=== PATIENT | male | born 1985 | race Caucasian/White ===

== ENCOUNTER 2017-12-01 15:23 | Inpatient (IN) | payer MEDICAID, SELFPAY ==
[2017-12-01 15:27] VITALS: BP 150/87; PULSE 126; RESP 18; TEMP 38.2; O2SAT 93; BMI 68.9
--- NOTE | 2017-12-01 15:58 | VDLE_ITS ---
Reason For Study: cellullitis, RLE pain RIGHT GSV is normal. FV is compressible, spontaneous, phasic, competent and demonstrates normal augmentation. POP V is compressible, spontaneous, phasic, competent and demonstrates normal augmentation. T/P Trunk is compressible. PTV is compressible. Unable to visualize peroneal veins. CFV is compressible, spontaneous, phasic, competent and demonstrates normal augmentation. Procedure Exam performed portable in ED. The study was technically limited. The study was technically difficult. Due to obesity. A preliminary report was called and/or faxed to ED. Interpretation Summary Deep veins of the right lower extremity are patent and compressible segmentally. There is no evidence of right lower extremity deep vein thrombosis. Valvular competence appears intact within the proximal deep venous system on the right . The right greater saphenous vein appears patent and compressible segmentally. The right peroneal veins were not visualized. Ordering Physician: Annamarie Garcia Referring Physician: OTD Performed By: Beena Ba, RUFINA, RVT
[2017-12-01 15:59] VITALS: BP 140/80; PULSE 102; RESP 14; O2SAT 99
[2017-12-01] MEDS: Clindamycin 900 MG/50 ML BAG 75 MG IV (16:20)
[2017-12-01] MEDS: Acetaminophen 500 MG Tablet 1000 MG PO (16:20)
[2017-12-01 16:39] LABS: Absolute Lymphocyte Count 1.32 X10^3/ul (0.83-4.51); Absolute Neutrophil Count 9.8 X10^3/uL (2.0-7.7); Basophil# 0.02 X10^3/uL; Basophil% 0.2 % (0-1); Eosinophil# 0.02 X10^3/uL; Eosinophils% 0.2 % (0-5); Lymphocyte # 1.32 X10^3/ul (4.0); Lymphocyte % 10.5 % (19-41); Mean Corp Hgb Conc 32.5 g/gl (32-36); Mean Corpuscular Hgb 28.3 pg (27.0-32.0); Mean Corpuscular Volume 87.1 fL (80-94); Mean Platelet Vol. 10.4 fl (6.2-12.0); Monocyte# 1.34 X10^3/uL; Monocyte% 10.7 % (0-10); Neutrophil # 9.81 X10^3/uL (2.7-7.7); Neutrophil % 78.1 % (47-70); Platelet Count 222 K/mm3 (150-450); RBC Distribution Width CV 14.8 % (11.6-14.6); RBC Distribution Width SD 47.3 fl (35.1-43.9); Red Blood Count 4.59 M/mm3 (4.6-6.2); White Blood Count 12.6 K/mm3 (4.4-11.0)
[2017-12-01 16:47] LABS: POSITIVE COUNT NO; POSITIVE DIFFERENTIAL NO; POSITIVE MORPHOLOGY NO
[2017-12-01 16:55] LABS: ALB/GLOB Ratio 0.7 RATIO (0.9-2.4); AST(SGOT) 13 U/L (15-37); Alanine Aminotransfer ALT/SGPT 19 U/L (16-61); Alkaline Phosphatase 59 U/L (45-117); Anion Gap 7 (5-15); BUN 10 mg/dL (7-18); BUN/Creat Ratio 9.9 RATIO (10-20); Calcium,Total 9.1 mg/dL (8.5-10.1); Chloride 99 mmol/L (98-107); Creatinine, Serum 1.01 mg/dL (0.70-1.30); EST Glomerular Filtration Rate 92 mL/min (>60); Est Glom Filt Rate - Afr Amer 111 mL/min (>60); Estimated Creatinine Clearance 99.99 ml/min; Globulin 4.5 g/dL (2.2-4.2); Glucose 118 mg/dL (74-106); Potassium 3.7 mmol/L (3.5-5.1); Protein, Total 7.5 g/dL (6.4-8.2); Sodium Level 133 mmol/L (136-145)
[2017-12-01 16:58] VITALS: BMI 68.9
[2017-12-01 17:04] VITALS: BP 145/88; PULSE 103; RESP 14; O2SAT 99
--- NOTE | 2017-12-01 17:10 | PCM.HP.STD ---
<Linus Lance - Last Filed: 12/01/17 17:40> Problem List (1) Sepsis Status: Acute (2) Cellulitis Status: Acute (3) Nicotine abuse Status: Chronic (4) Morbid obesity Status: Chronic (5) HTN (hypertension) Status: Chronic History of Present Illness Date of Admission: 12/01/17 Chief Complaint: RLE swelling The patient is a 31 year old M with a hx of multiple episodes of cellulitis, morbid obesity, HTN, nicotine abuse who presents to the ER with increased swelling of his RLE. This began about 2 days ago. He had a small raised area about a month ago that he described as a large pimple, and he opened it up with purulent drainage, and cleaned it with hydrogen peroxide. He states it was doing well until two days ago where it developed surrounding erythema, pain, redness, warmth, and became very swollen. It progressively worsened. He developed nausea, dry heaves, fevers and chills. He presents today with a fever and sepsis in the ER. He has not been on outpatient abx. He has had multiple episodes of cellulitis in this area in the past. The ipsilateral knee has also had an abscess that was I&D'd in the past about 1 year ago. He does not know what bacteria if any were isolated, and does not know if he has ever had MRSA. He has not had any further drainage from the open wound. [] Past Medical History Past Medical History (Chronic Problems): Chronic Problems Nicotine abuse (Chronic) Morbid obesity (Chronic) HTN (hypertension) (Chronic) Allergies No Known Allergies Allergy (Verified 12/01/17 15:28) Home Medications: Ambulatory Orders Medication Instructions Recorded Cholecalciferol (Vitamin D3) 5,000 unit PO DAILY 12/01/17 [Vitamin D3] Lisinopril/Hydrochlorothiazide 1 each PO DAILY 12/01/17 [Zestoretic 20-12.5 mg Tablet] Surgical History: - - tonsils Psychiatric History: No pertinent psych hx Lives: With Family Smoking Status: Current every day smoker Tobacco Use: Cigarettes Alcohol: None Drugs: None - *Family History Maternal History Items: No pertinent history Paternal History Items: No pertinent history Sibling History Items: No pertinent history Review of Systems Constitutional: Reports: Chills, Fever. Denies: Weight Change HEENT: Denies: Head Aches, Sinus Congestion, Sinus Drainage Cardiovascular: Denies: Chest Pain, Palpitations Respiratory: Denies: Cough, Shortness of breath at rest, Sputum production Gastrointestinal: Reports: Nausea, Vomiting. Denies: Abdominal Pain, Melena Genitourinary: Denies: Dysuria Musculoskeletal: Denies: Joint Pain, Joint Tenderness Skin: Reports: Rash, Wounds Neurological: Denies: Numbness, Tingling, Focal weakness Psychiatric: Denies: Anxiety, Depression, Homicidal Ideations, Suicidal Ideations Hematologic/ Lymphatic: Denies: Easy Bruising, Easy Bleeding VTE Information - Inpt Only VTE Present on Admission: No VTE Mechan Device Prophylaxis: None Patient Problems: Active and Suspected Problems Sepsis (Acute) Cellulitis (Acute) - Physical Exam General: Alert, Oriented x3, Cooperative HEENT: Atraumatic, PERRLA, EOMI, Normocephalic Neck: Supple, No JVD, Negative Carotid Bruits Lungs: Clear to auscultation, Normal air movement Cardiovascular: Regular rate, No murmurs Abdomen: Bowel Sounds Present, Soft, Non Tender, Obese Extremities: No edema, Capillary Refill Less than 3 Seconds Skin: No breakdown, Rash Present - RLE, partially into Right foot, up to but sparing knee. Warm, tender, indurated, erythematous diffusely. Small open area of nonhealing wound right anterolateral distal leg. Musculoskeletal: No Tenderness to Palpation of Joints or Extremities Neurological: Cranial nerves II-XII grossly intact Psych/Mental Status: Normal Affect, Appropriate, Alert and oriented to time, place, person, mood and affect Vital Signs Temp Pulse Resp BP Pulse Ox 100.8 F H 103 H 14 145/88 H 99 12/01/17 15:27 12/01/17 17:04 12/01/17 17:04 12/01/17 17:04 12/01/17 17:04 Oxygen Delivery Method Room Air Weight: 440 lb Body Mass Index (BMI) 68.9 Laboratory Tests Past 24 Hrs 12/01/17 12/01/17 12/01/17 16:20 16:20 16:20 WBC 12.6 H RBC 4.59 L Hgb 13.0 Hct 40.0 MCV 87.1 MCH 28.3 MCHC 32.5 RDW 14.8 H RDW Differential 47.3 H Plt Count 222 MPV 10.4 Immature Gran % (Auto) 0.300 Neut % (Auto) 78.1 H Lymph % (Auto) 10.5 L Dolores % (Auto) 10.7 H Eos % (Auto) 0.2 Baso % (Auto) 0.2 Absolute Neuts (auto) 9.8 H Absolute Lymphs (auto) 1.32 Total Counted Not Reportable Sodium 133 L Potassium 3.7 Chloride 99 Carbon Dioxide 27.0 Anion Gap 7 BUN 10 Creatinine 1.01 Estim Creat Clear Calc 99.99 Est GFR (MDRD) Af Amer 111 Est GFR (MDRD) Non-Af 92 BUN/Creatinine Ratio 9.9 L Glucose 118 H Lactic Acid Pending Calcium 9.1 Total Bilirubin 0.60 AST 13 L ALT 19 Alkaline Phosphatase 59 Total Protein 7.5 Albumin 3.0 L Globulin 4.5 H Albumin/Globulin Ratio 0.7 L Assessment/Plan All Active Problems Sepsis (Acute) Cellulitis (Acute) 1. Acute sepsis 2/2 RLE recurrent cellulitis and nonhealing RLE wound - did have purulent drainage initially. Received one dose of clinda in the ER. Start Vanc. Get MRSA/MSSA screen, blood cultures pending. Consider CT to r/o underlying abscess if able to fit max is 70 cm at furthest width across. Wound care consult. Prior hx cellulitis same area. Fever, tachy, elevated WBC on admission. Lactate is pending. Venous US RLE negative for clots. 2. HTN - mildly elevated 3. Morbid obesity - mildly elevated glucose - check a1c. 4. Nicotine abuse - does not want patch at this time. Will complicate wound healing. DVT ppx: lovenox This patient was seen by Linus Lance PA-C under the supervision of Doctor Franny. <Toy Blanton - Last Filed: 12/01/17 17:48> Problem List (1) Sepsis Status: Acute (2) Cellulitis Status: Acute History of Present Illness The patient is a 31 year old M 2 day history of right lower extremity erythema. Presents emergency room and diagnosed treated with clindamycin. Patient has had a history of cellulitis in that lower extremity before. Patient states that a month prior had a wound on the lateral aspect of the right anterior ocampo that did heal up. [] Past Medical History Allergies No Known Allergies Allergy (Verified 12/01/17 15:28) Surgical History: - Psychiatric History: No pertinent psych hx Lives: With Family Smoking Status: Current every day smoker Tobacco Use: Cigarettes Alcohol: None Drugs: None - *Family History Maternal History Items: No pertinent history Paternal History Items: No pertinent history Sibling History Items: No pertinent history Review of Systems Constitutional: Reports: Chills, Fever. Denies: Weight Change HEENT: Denies: Head Aches, Sinus Congestion, Sinus Drainage Cardiovascular: Denies: Chest Pain, Palpitations Respiratory: Denies: Cough Gastrointestinal: Reports: Nausea, Vomiting. Denies: Abdominal Pain, Melena Genitourinary: Denies: Dysuria Musculoskeletal: Denies: Joint Pain Skin: Reports: Rash, Wounds Neurological: Denies: Focal weakness, Numbness, Tingling Psychiatric: Denies: Anxiety, Depression, Homicidal Ideations, Suicidal Ideations Hematologic/ Lymphatic: Denies: Easy Bruising, Easy Bleeding, Hx of blood clot Comment: All review of systems are negative except as mentioned in the history of present illness and the other review of systems. VTE Information - Inpt Only VTE Present on Admission: No VTE Mechan Device Prophylaxis: None VTE Pharm Prophylaxis ordered?: Yes - Physical Exam General: Alert, Cooperative, No apparent distress, - - Morbidly obese. HEENT: Atraumatic, PERRLA, EOMI, Normocephalic Lungs: Clear to auscultation, Normal air movement Cardiovascular: Regular rate, Regular Rhythm, Normal S1, Normal S2, No murmurs Abdomen: Bowel Sounds Present, Soft, Non Tender, Non-Distended Extremities: No cyanosis, Edema - Trace Skin: No breakdown, - - Erythema circumferentially around the right distal leg. Just distal his knee and above his ankle. Some slight tenderness palpation. No significant induration, no fluctuance. Musculoskeletal: No Tenderness to Palpation of Joints or Extremities Psych/Mental Status: Normal Affect, Appropriate Vital Signs Temp Pulse Resp BP Pulse Ox 38.2 C H 103 H 14 145/88 H 99 12/01/17 15:27 12/01/17 17:04 12/01/17 17:04 12/01/17 17:04 12/01/17 17:04 Oxygen Delivery Method Room Air Weight: 199.581 kg Body Mass Index (BMI) 68.9 Laboratory Tests Past 24 Hrs 12/01/17 12/01/17 12/01/17 16:20 16:20 16:20 WBC 12.6 H RBC 4.59 L Hgb 13.0 Hct 40.0 MCV 87.1 MCH 28.3 MCHC 32.5 RDW 14.8 H RDW Differential 47.3 H Plt Count 222 MPV 10.4 Immature Gran % (Auto) 0.300 Neut % (Auto) 78.1 H Lymph % (Auto) 10.5 L Dolores % (Auto) 10.7 H Eos % (Auto) 0.2 Baso % (Auto) 0.2 Absolute Neuts (auto) 9.8 H Absolute Lymphs (auto) 1.32 Total Counted Not Reportable Sodium 133 L Potassium 3.7 Chloride 99 Carbon Dioxide 27.0 Anion Gap 7 BUN 10 Creatinine 1.01 Estim Creat Clear Calc 99.99 Est GFR (MDRD) Af Amer 111 Est GFR (MDRD) Non-Af 92 BUN/Creatinine Ratio 9.9 L Glucose 118 H Lactic Acid 1.3 Calcium 9.1 Total Bilirubin 0.60 AST 13 L ALT 19 Alkaline Phosphatase 59 Total Protein 7.5 Albumin 3.0 L Globulin 4.5 H Albumin/Globulin Ratio 0.7 L Assessment/Plan Patient seen and examined independently. Data reviewed. I agree with the above note by the physician child care assistant. 1. Sepsis Present on arrival Secondary to right lower extremity cellulitis Supportive management 2. Right lower extremity cellulitis I suspected this is strep but cannot rule out staph. Check MRSA swab Check CT scan of the leg to see if there is any abscess or deeper infection Vancomycin 3. Morbid obesity: Complicating care 4. DVT prophylaxis with Lovenox Code Visit Inpatient E&M: 52535 Init Hosp L2
[2017-12-01 17:11] LABS: Lactic Acid 1.3 mmol/L (0.4-2.0)
--- NOTE | 2017-12-01 17:15 | HP.PCM_ITS ---
<Linus Lance - Last Filed: 12/01/17 17:40> Problem List (1) Sepsis Status: Acute (2) Cellulitis Status: Acute (3) Nicotine abuse Status: Chronic (4) Morbid obesity Status: Chronic (5) HTN (hypertension) Status: Chronic History of Present Illness Date of Admission: 12/01/17 Chief Complaint: RLE swelling The patient is a 31 year old M with a hx of multiple episodes of cellulitis, morbid obesity, HTN, nicotine abuse who presents to the ER with increased swelling of his RLE. This began about 2 days ago. He had a small raised area about a month ago that he described as a large pimple, and he opened it up with purulent drainage, and cleaned it with hydrogen peroxide. He states it was doing well until two days ago where it developed surrounding erythema, pain, redness, warmth, and became very swollen. It progressively worsened. He developed nausea, dry heaves, fevers and chills. He presents today with a fever and sepsis in the ER. He has not been on outpatient abx. He has had multiple episodes of cellulitis in this area in the past. The ipsilateral knee has also had an abscess that was I&D'd in the past about 1 year ago. He does not know what bacteria if any were isolated, and does not know if he has ever had MRSA. He has not had any further drainage from the open wound. [] Past Medical History Past Medical History (Chronic Problems): Chronic Problems Nicotine abuse (Chronic) Morbid obesity (Chronic) HTN (hypertension) (Chronic) Allergies No Known Allergies Allergy (Verified 12/01/17 15:28) Home Medications: Ambulatory Orders Medication Instructions Recorded Cholecalciferol (Vitamin D3) 5,000 unit PO DAILY 12/01/17 [Vitamin D3] Lisinopril/Hydrochlorothiazide 1 each PO DAILY 12/01/17 [Zestoretic 20-12.5 mg Tablet] Surgical History: - - tonsils Psychiatric History: No pertinent psych hx Lives: With Family Smoking Status: Current every day smoker Tobacco Use: Cigarettes Alcohol: None Drugs: None - *Family History Maternal History Items: No pertinent history Paternal History Items: No pertinent history Sibling History Items: No pertinent history Review of Systems Constitutional: Reports: Chills, Fever. Denies: Weight Change HEENT: Denies: Head Aches, Sinus Congestion, Sinus Drainage Cardiovascular: Denies: Chest Pain, Palpitations Respiratory: Denies: Cough, Shortness of breath at rest, Sputum production Gastrointestinal: Reports: Nausea, Vomiting. Denies: Abdominal Pain, Melena Genitourinary: Denies: Dysuria Musculoskeletal: Denies: Joint Pain, Joint Tenderness Skin: Reports: Rash, Wounds Neurological: Denies: Numbness, Tingling, Focal weakness Psychiatric: Denies: Anxiety, Depression, Homicidal Ideations, Suicidal Ideations Hematologic/ Lymphatic: Denies: Easy Bruising, Easy Bleeding VTE Information - Inpt Only VTE Present on Admission: No VTE Mechan Device Prophylaxis: None Patient Problems: Active and Suspected Problems Sepsis (Acute) Cellulitis (Acute) - Physical Exam General: Alert, Oriented x3, Cooperative HEENT: Atraumatic, PERRLA, EOMI, Normocephalic Neck: Supple, No JVD, Negative Carotid Bruits Lungs: Clear to auscultation, Normal air movement Cardiovascular: Regular rate, No murmurs Abdomen: Bowel Sounds Present, Soft, Non Tender, Obese Extremities: No edema, Capillary Refill Less than 3 Seconds Skin: No breakdown, Rash Present - RLE, partially into Right foot, up to but sparing knee. Warm, tender, indurated, erythematous diffusely. Small open area of nonhealing wound right anterolateral distal leg. Musculoskeletal: No Tenderness to Palpation of Joints or Extremities Neurological: Cranial nerves II-XII grossly intact Psych/Mental Status: Normal Affect, Appropriate, Alert and oriented to time, place, person, mood and affect Vital Signs Temp Pulse Resp BP Pulse Ox 100.8 F H 103 H 14 145/88 H 99 12/01/17 15:27 12/01/17 17:04 12/01/17 17:04 12/01/17 17:04 12/01/17 17:04 Oxygen Delivery Method Room Air Weight: 440 lb Body Mass Index (BMI) 68.9 Laboratory Tests Past 24 Hrs 12/01/17 12/01/17 12/01/17 16:20 16:20 16:20 WBC 12.6 H RBC 4.59 L Hgb 13.0 Hct 40.0 MCV 87.1 MCH 28.3 MCHC 32.5 RDW 14.8 H RDW Differential 47.3 H Plt Count 222 MPV 10.4 Immature Gran % (Auto) 0.300 Neut % (Auto) 78.1 H Lymph % (Auto) 10.5 L Wetzel % (Auto) 10.7 H Eos % (Auto) 0.2 Baso % (Auto) 0.2 Absolute Neuts (auto) 9.8 H Absolute Lymphs (auto) 1.32 Total Counted Not Reportable Sodium 133 L Potassium 3.7 Chloride 99 Carbon Dioxide 27.0 Anion Gap 7 BUN 10 Creatinine 1.01 Estim Creat Clear Calc 99.99 Est GFR (MDRD) Af Amer 111 Est GFR (MDRD) Non-Af 92 BUN/Creatinine Ratio 9.9 L Glucose 118 H Lactic Acid Pending Calcium 9.1 Total Bilirubin 0.60 AST 13 L ALT 19 Alkaline Phosphatase 59 Total Protein 7.5 Albumin 3.0 L Globulin 4.5 H Albumin/Globulin Ratio 0.7 L Assessment/Plan All Active Problems Sepsis (Acute) Cellulitis (Acute) 1. Acute sepsis 2/2 RLE recurrent cellulitis and nonhealing RLE wound - did have purulent drainage initially. Received one dose of clinda in the ER. Start Vanc. Get MRSA/MSSA screen, blood cultures pending. Consider CT to r/o underlying abscess if able to fit max is 70 cm at furthest width across. Wound care consult. Prior hx cellulitis same area. Fever, tachy, elevated WBC on admission. Lactate is pending. Venous US RLE negative for clots. 2. HTN - mildly elevated 3. Morbid obesity - mildly elevated glucose - check a1c. 4. Nicotine abuse - does not want patch at this time. Will complicate wound healing. DVT ppx: lovenox This patient was seen by Linus Lance PA-C under the supervision of Doctor Franny. <Toy Blanton - Last Filed: 12/01/17 17:48> Problem List (1) Sepsis Status: Acute (2) Cellulitis Status: Acute History of Present Illness The patient is a 31 year old M 2 day history of right lower extremity erythema. Presents emergency room and diagnosed treated with clindamycin. Patient has had a history of cellulitis in that lower extremity before. Patient states that a month prior had a wound on the lateral aspect of the right anterior ocampo that did heal up. [] Past Medical History Allergies No Known Allergies Allergy (Verified 12/01/17 15:28) Surgical History: - Psychiatric History: No pertinent psych hx Lives: With Family Smoking Status: Current every day smoker Tobacco Use: Cigarettes Alcohol: None Drugs: None - *Family History Maternal History Items: No pertinent history Paternal History Items: No pertinent history Sibling History Items: No pertinent history Review of Systems Constitutional: Reports: Chills, Fever. Denies: Weight Change HEENT: Denies: Head Aches, Sinus Congestion, Sinus Drainage Cardiovascular: Denies: Chest Pain, Palpitations Respiratory: Denies: Cough Gastrointestinal: Reports: Nausea, Vomiting. Denies: Abdominal Pain, Melena Genitourinary: Denies: Dysuria Musculoskeletal: Denies: Joint Pain Skin: Reports: Rash, Wounds Neurological: Denies: Focal weakness, Numbness, Tingling Psychiatric: Denies: Anxiety, Depression, Homicidal Ideations, Suicidal Ideations Hematologic/ Lymphatic: Denies: Easy Bruising, Easy Bleeding, Hx of blood clot Comment: All review of systems are negative except as mentioned in the history of present illness and the other review of systems. VTE Information - Inpt Only VTE Present on Admission: No VTE Mechan Device Prophylaxis: None VTE Pharm Prophylaxis ordered?: Yes - Physical Exam General: Alert, Cooperative, No apparent distress, - - Morbidly obese. HEENT: Atraumatic, PERRLA, EOMI, Normocephalic Lungs: Clear to auscultation, Normal air movement Cardiovascular: Regular rate, Regular Rhythm, Normal S1, Normal S2, No murmurs Abdomen: Bowel Sounds Present, Soft, Non Tender, Non-Distended Extremities: No cyanosis, Edema - Trace Skin: No breakdown, - - Erythema circumferentially around the right distal leg. Just distal his knee and above his ankle. Some slight tenderness palpation. No significant induration, no fluctuance. Musculoskeletal: No Tenderness to Palpation of Joints or Extremities Psych/Mental Status: Normal Affect, Appropriate Vital Signs Temp Pulse Resp BP Pulse Ox 38.2 C H 103 H 14 145/88 H 99 12/01/17 15:27 12/01/17 17:04 12/01/17 17:04 12/01/17 17:04 12/01/17 17:04 Oxygen Delivery Method Room Air Weight: 199.581 kg Body Mass Index (BMI) 68.9 Laboratory Tests Past 24 Hrs 12/01/17 12/01/17 12/01/17 16:20 16:20 16:20 WBC 12.6 H RBC 4.59 L Hgb 13.0 Hct 40.0 MCV 87.1 MCH 28.3 MCHC 32.5 RDW 14.8 H RDW Differential 47.3 H Plt Count 222 MPV 10.4 Immature Gran % (Auto) 0.300 Neut % (Auto) 78.1 H Lymph % (Auto) 10.5 L Wetzel % (Auto) 10.7 H Eos % (Auto) 0.2 Baso % (Auto) 0.2 Absolute Neuts (auto) 9.8 H Absolute Lymphs (auto) 1.32 Total Counted Not Reportable Sodium 133 L Potassium 3.7 Chloride 99 Carbon Dioxide 27.0 Anion Gap 7 BUN 10 Creatinine 1.01 Estim Creat Clear Calc 99.99 Est GFR (MDRD) Af Amer 111 Est GFR (MDRD) Non-Af 92 BUN/Creatinine Ratio 9.9 L Glucose 118 H Lactic Acid 1.3 Calcium 9.1 Total Bilirubin 0.60 AST 13 L ALT 19 Alkaline Phosphatase 59 Total Protein 7.5 Albumin 3.0 L Globulin 4.5 H Albumin/Globulin Ratio 0.7 L Assessment/Plan Patient seen and examined independently. Data reviewed. I agree with the above note by the physician hardware sales assistant. 1. Sepsis * Present on arrival * Secondary to right lower extremity cellulitis * Supportive management 2. Right lower extremity cellulitis * I suspected this is strep but cannot rule out staph. * Check MRSA swab * Check CT scan of the leg to see if there is any abscess or deeper infection * Vancomycin 3. Morbid obesity: Complicating care 4. DVT prophylaxis with Lovenox Code Visit Inpatient E&M: 65032 Init Hosp L2
[2017-12-01 17:44] VITALS: BP 110/80; PULSE 110; RESP 14; O2SAT 98
--- NOTE | 2017-12-01 17:46 | NURSING ---
MED SURG RLE CELLULITIS VERÓNICA
--- NOTE | 2017-12-01 18:13 | CT_ITS ---
STUDY: CT LOWER LEG RIGHT REASON FOR EXAM: Male, 31 years old. Cellulitis right leg RADIATION DOSAGE (If Supplied By Facility): CTDIvol = ( 17.29 ) mGy, DLP = ( 761.33 ) mGycm. Individualized dose optimization techniques were used for this CT.? TECHNIQUE: Standard protocol CT without contrast right lower leg COMPARISON: None. FINDINGS: Circumferential subcutaneous edema but no organized fluid collection. Cortical margins intact. CT/Extremity Lower without Contra IMPRESSION: Diffuse soft tissue swelling/edema and possible inflammation but no organized fluid collection or abscess. Electronically Signed: Prakash Prado MD at 19:57 EDT , Service support ,
[2017-12-01 18:16] VITALS: BMI 68.9
[2017-12-01 18:19] VITALS: BP 135/78; PULSE 114; RESP 18; TEMP 36.8; O2SAT 95
[2017-12-01 19:02] LABS: Hemoglobin A1c 5.9 % (4.2-6.3)
[2017-12-01 19:39] VITALS: BP 134/78; PULSE 114; RESP 18; TEMP 37.4; O2SAT 94
--- NOTE | 2017-12-01 20:07 | PCM.RX.CS ---
Consult Pharmacy has been consulted to manage selected antiobiotic: Vancomycin Type of Consult: New start Suspected Infection: Skin/Soft tissue Prior Doses of Antibiotics Received/Current Regimen: Medications Vancomycin HCl 2,000 mg/ (Sodium Chloride) 540 mls @ 260 mls/hr IV X1 ONE Stop: 12/01/17 21:04 Last Admin: 12/01/17 19:44 Dose: 260 mls/hr Vancomycin HCl 1,750 mg/ (Sodium Chloride) 535 mls @ 260 mls/hr IV Q12H JACQUELYN to begin 12/02/17 0800 Labs: Sodium 133 mmol/L (136-145) L 12/01/17 16:20 Potassium 3.7 mmol/L (3.5-5.1) 12/01/17 16:20 Chloride 99 mmol/L (98-107) 12/01/17 16:20 Carbon Dioxide 27.0 mmol/L (21.0-32.0) 12/01/17 16:20 Anion Gap 7 (5-15) 12/01/17 16:20 BUN 10 mg/dL (7-18) 12/01/17 16:20 Creatinine 1.01 mg/dL (0.70-1.30) 12/01/17 16:20 Est GFR (MDRD) Af Amer 111 mL/min (>60) 12/01/17 16:20 Est GFR (MDRD) Non-Af 92 mL/min (>60) 12/01/17 16:20 BUN/Creatinine Ratio 9.9 RATIO (10-20) L 12/01/17 16:20 Glucose 118 mg/dL (74-106) H 12/01/17 16:20 Weight used for dosin kg Estimated Creatinine Clearance: 99.99 ml/m Goal Trough: 10-15 mcg/mL Pharmacy Plan for Drug Dosing: Pharmacy Service will continue to monitor and adjust dosing as required. Follow-Up Labs: Trough Vancomycin Labs to be done on [date and time ordered]: vancomycin trough ordered for 12/03/17 0730
[2017-12-02 02:01] VITALS: BP 128/72; PULSE 110; RESP 18; TEMP 37.4; O2SAT 95
[2017-12-02 06:36] LABS: Absolute Lymphocyte Count 1.54 X10^3/ul (0.83-4.51); Absolute Neutrophil Count 7.8 X10^3/uL (2.0-7.7); Basophil# 0.02 X10^3/uL; Basophil% 0.2 % (0-1); Eosinophil# 0.09 X10^3/uL; Eosinophils% 0.8 % (0-5); Hematocrit 38.8 % (40-54); Hemoglobin 12.7 g/dl (13.0-16.5); Lymphocyte # 1.54 X10^3/ul (4.0); Lymphocyte % 14.2 % (19-41); Mean Corp Hgb Conc 32.7 g/gl (32-36); Mean Corpuscular Hgb 28.7 pg (27.0-32.0); Mean Corpuscular Volume 87.8 fL (80-94); Mean Platelet Vol. 10.5 fl (6.2-12.0); Monocyte# 1.33 X10^3/uL; Monocyte% 12.2 % (0-10); Neutrophil # 7.84 X10^3/uL (2.7-7.7); Neutrophil % 72.1 % (47-70); Platelet Count 222 K/mm3 (150-450); RBC Distribution Width CV 14.8 % (11.6-14.6); RBC Distribution Width SD 47.5 fl (35.1-43.9); Red Blood Count 4.42 M/mm3 (4.6-6.2); White Blood Count 10.9 K/mm3 (4.4-11.0)
[2017-12-02 06:37] LABS: POSITIVE COUNT NO; POSITIVE DIFFERENTIAL NO; POSITIVE MORPHOLOGY NO
[2017-12-02 06:52] LABS: Anion Gap 9 (5-15); BUN 9 mg/dL (7-18); Calcium,Total 8.7 mg/dL (8.5-10.1); Chloride 101 mmol/L (98-107); Creatinine, Serum 0.82 mg/dL (0.70-1.30); EST Glomerular Filtration Rate 117 mL/min (>60); Est Glom Filt Rate - Afr Amer 141 mL/min (>60); Estimated Creatinine Clearance 123.15 ml/min; Glucose 91 mg/dL (74-106); Potassium 3.8 mmol/L (3.5-5.1); Sodium Level 138 mmol/L (136-145)
[2017-12-02 06:55] LABS: Bedside Glucose 87 mg/dL (70-110)
[2017-12-02 07:40] VITALS: BP 132/69; PULSE 115; PULSE 118; RESP 18; TEMP 38.1; O2SAT 94
[2017-12-02] MEDS: Acetaminophen 325 MG Tablet 650 MG PO (08:03)
[2017-12-02] MEDS: Enoxaparin 40 MG/0.4 ML Syringe SC (09:48)
[2017-12-02] MEDS: HYDROCHLOROTHIAZIDE 12.5 MG CAPSULE PO (09:49)
[2017-12-02] MEDS: Lisinopril 20 MG Tablet PO (09:50)
[2017-12-02 09:54] VITALS: TEMP 37.6
[2017-12-02 10:51] LABS: Bedside Glucose 123 mg/dL (70-110)
--- NOTE | 2017-12-02 12:20 | CASEMGMT ---
Face to Face with patient for initial transition planning/care coordination assessment. MARTÍN SHETH introduced self and role at [facility], pt voices understanding and consents to assessment at this time. Pt is sitting up in bed in no distress at this time with no oxygen in place. Pt is A/O x4 at this time and answers all questions appropriately at this time. Care providers, pharmacy, and demographics verified. See attached link. Pt voices no further concerns/needs at this time. Advised pt to ask for CM if any further questions/concerns/needs arise, voices understanding. CM to follow for any further discharge planning/needs. PLAN[place] MART[facility]N SHETH
[2017-12-02 13:14] VITALS: RESP 20
--- NOTE | 2017-12-02 13:14 | PCM.PROGNOTE ---
Patient Problems: Active and Suspected Problems Sepsis (Acute) Cellulitis (Acute) Subjective: Pain and swelling in RLE is improving, but only mildly. He had a fever overnight. He has no SOB/cough. No open areas or discharge. - Physical Exam General: Alert, Oriented x3, Cooperative HEENT: Atraumatic, PERRLA, EOMI, Normocephalic Neck: Supple, No JVD, Negative Carotid Bruits Lungs: Clear to auscultation, Normal air movement Cardiovascular: Regular rate, No murmurs Abdomen: Bowel Sounds Present, Soft, Non Tender, Obese Extremities: Capillary Refill Less than 3 Seconds, Edema Skin: No breakdown, - - RLE cellulitic changes are beginning to recede away from the demarcations. Musculoskeletal: No Tenderness to Palpation of Joints or Extremities Neurological: Cranial nerves II-XII grossly intact Psych/Mental Status: Normal Affect, Appropriate, Alert and oriented to time, place, person, mood and affect Vital Signs Temp Pulse Resp BP Pulse Ox 99.6 F H 118 H 18 132/69 H 94 12/02/17 09:54 12/02/17 07:40 12/02/17 07:40 12/02/17 07:40 12/02/17 07:40 Oxygen Delivery Method Room Air Weight: 440 lb 0.012 oz Body Mass Index (BMI) 68.9 Intake and Output for Last 24 Hours 11/30/17 12/01/17 12/02/17 23:59 23:59 23:59 Intake Total 1140 / 1140 Balance 1140 / 1140 Laboratory Tests Past 24 Hrs 12/02/17 12/02/17 06:10 06:10 WBC 10.9 RBC 4.42 L Hgb 12.7 L Hct 38.8 L MCV 87.8 MCH 28.7 MCHC 32.7 RDW 14.8 H RDW Differential 47.5 H Plt Count 222 MPV 10.5 Immature Gran % (Auto) 0.500 Neut % (Auto) 72.1 H Lymph % (Auto) 14.2 L [place] % (Auto) 12.2 H Eos % (Auto) 0.8 Baso % (Auto) 0.2 Absolute Neuts (auto) 7.8 H Absolute Lymphs (auto) 1.54 Total Counted Not Reportable Sodium 138 Potassium 3.8 Chloride 101 Carbon Dioxide 28.0 Anion Gap 9 BUN 9 Creatinine 0.82 Estim Creat Clear Calc 123.15 Est GFR (MDRD) Af Amer 141 Est GFR (MDRD) Non-Af 117 BUN/Creatinine Ratio 11.0 Glucose 91 Calcium 8.7 POC Glucose 12/02/17 12/02/17 10:46 06:25 POC Glucose 123 H 87 Medical Necessity - Tobacco Use Smoking Status: Current every day smoker Tobacco Use: Cigarettes Assessment/Plan All Active Problems Sepsis (Acute) Cellulitis (Acute) 1. Acute sepsis 2/2 RLE recurrent cellulitis and nonhealing RLE wound - Vanc to ancef today. WBC resolved. Mild fever this am. cellulitis receding away from demarctions. CT is negative for abscess - diffuse soft tissue swelling/edema. Still with fever and tachy today. 2. HTN - stable 3. Morbid obesity - [employer] consult. A1c Consistent with prediabetes. He will need a follow up a1c with his PCP in 3-4 months. He may benefit from beginning an antidiabetic agent particularly one associated with weight loss, but will defer at this time. 4. Nicotine abuse - does not want patch at this time. Will complicate wound healing. DVT ppx: lovenox This patient was seen by Linus Lance PA-C under the supervision of Doctor Wiggins.
[2017-12-02 13:18] VITALS: BP 118/84; PULSE 118; RESP 20; TEMP 37.2; O2SAT 94
[2017-12-02] MEDS: Cefazolin 2 GM in 0.9% Normal Saline 100 ML IV ×2 (13:20→21:03)
[2017-12-02 16:01] LABS: Bedside Glucose 97 mg/dL (70-110)
[2017-12-02 21:00] VITALS: BP 130/65; PULSE 75; RESP 18; TEMP 37.4; O2SAT 95
[2017-12-02 22:15] LABS: Bedside Glucose 109 mg/dL (70-110)
[2017-12-03 03:00] VITALS: BP 119/55; PULSE 112; RESP 18; TEMP 37.4; O2SAT 98
[2017-12-03] MEDS: Cefazolin 2 GM in 0.9% Normal Saline 100 ML IV (05:35)
[2017-12-03 06:06] LABS: Absolute Lymphocyte Count 1.39 X10^3/ul (0.83-4.51); Absolute Neutrophil Count 8.1 X10^3/uL (2.0-7.7); Basophil# 0.02 X10^3/uL; Basophil% 0.2 % (0-1); Eosinophil# 0.15 X10^3/uL; Eosinophils% 1.4 % (0-5); Hematocrit 38.7 % (40-54); Hemoglobin 12.8 g/dl (13.0-16.5); Lymphocyte # 1.39 X10^3/ul (4.0); Lymphocyte % 12.6 % (19-41); Mean Corp Hgb Conc 33.1 g/gl (32-36); Mean Corpuscular Hgb 28.6 pg (27.0-32.0); Mean Corpuscular Volume 86.6 fL (80-94); Mean Platelet Vol. 10.2 fl (6.2-12.0); Monocyte# 1.32 X10^3/uL; Neutrophil # 8.09 X10^3/uL (2.7-7.7); Neutrophil % 73.2 % (47-70); Platelet Count 254 K/mm3 (150-450); RBC Distribution Width CV 14.7 % (11.6-14.6); RBC Distribution Width SD 46.4 fl (35.1-43.9); Red Blood Count 4.47 M/mm3 (4.6-6.2)
[2017-12-03 06:12] LABS: POSITIVE COUNT NO; POSITIVE DIFFERENTIAL NO; POSITIVE MORPHOLOGY NO
[2017-12-03 07:39] VITALS: PULSE 100; RESP 18
[2017-12-03] MEDS: HYDROCHLOROTHIAZIDE 12.5 MG CAPSULE PO (09:46)
[2017-12-03] MEDS: Lisinopril 20 MG Tablet PO (09:48)
[2017-12-03] MEDS: Enoxaparin 40 MG/0.4 ML Syringe SC (09:49)
[2017-12-03 09:52] VITALS: BP 132/75; PULSE 106; RESP 18; TEMP 36.9; O2SAT 95
--- NOTE | 2017-12-03 11:00 | PCM.DC ---
- Discharge Diagnoses Current Active Problems: Current Active and Chronic Problems Sepsis (Acute) Cellulitis (Acute) Nicotine abuse (Chronic) Morbid obesity (Chronic) HTN (hypertension) (Chronic) You will use the following diet at home:: Calorie/Carbohydrate Controlled (specify 1200, 1400, etc) - 2000 anurag / day Your food should be the consistency of: Regular Your liquids should be the consistency of: Regular/Thin Discharge Activity: Return to Normal Activity Additional Instructions: WARD wrap Right lower leg daily. Allergies/Adverse Reactions: Allergies No Known Allergies Allergy (Verified 12/01/17 15:28) Medications to take at Discharge Cholecalciferol (Vitamin D3) [Vitamin D3] 5,000 unit PO DAILY 12/01/17 Lisinopril/Hydrochlorothiazide [Zestoretic 20-12.5 mg Tablet] 1 each PO DAILY 12/01/17 Cefadroxil [Duricef] 1,000 mg PO BID #28 cap 12/03/17 Clotrimazole [Lotrimin] 1 applicatio TOPICAL BID #1 tube 12/03/17 The following prescriptions were given: Cefadroxil [Duricef] 1,000 mg PO BID #28 cap Clotrimazole [Lotrimin] 1 applicatio TOPICAL BID #1 tube Primary Care Physician: Care Physician,No Primary [Primary Care Provider] - Please follow up with your Primary Care Physician in: 1-2 weeks Test Results: Test results from this visit will be discussed in further detail at your follow-up appointment, if applicable. Proposed Discharge Date: 12/03/17
--- NOTE | 2017-12-03 13:11 | PCM.DC.SUM ---
Discharge Date and Diagnosis Date of Admission: 12/01/17 Date of Discharge: 12/03/17 - Primary Discharge Diagnosis Acute sepsis secondary to acute RLE cellulitis Morbid obesity Hypertension Nicotine abuse - Secondary Discharge Diagnosis Chronic Problems Nicotine abuse (Chronic) Morbid obesity (Chronic) HTN (hypertension) (Chronic) Hospital Course and Treatment Imaging Results: Interpretation Summary Deep veins of the right lower extremity are patent and compressible segmentally. There is no evidence of right lower extremity deep vein thrombosis. Valvular competence appears intact within the proximal deep venous system on the right . The right greater saphenous vein appears patent and compressible segmentally. The right peroneal veins were not visualized. CT/Extremity Lower without Contra IMPRESSION: Diffuse soft tissue swelling/edema and possible inflammation but no organized fluid collection or abscess. Operations: None Procedures: None Summary of Care Provided: Physical exam on day of discharge: General: Resting comfortably NAD Psych: A/Ox3 normal affect HEENT: PEARRLA AT NC Neck: Supple NT CV: RRR no m/t/r/g/h Resp: CTA Abd: [id number] Soft NT no guarding or rigidity, morbidly obese Ext: DP2+= no edema Skin: W/D normal turgor, his right lower extremity swelling, erythema, warmth, and tenderness have improved. The erythema is receding away from the demarcations further than yesterday. Bilateral feet have cracking, fungal changes between toes and on bottoms of feet. Lymph/Heme: No active bleeding or adenopathy Neuro: CN2-12 intact Hospital course: The patient is a 31 year old M with a history of nicotine abuse, hypertension, morbid obesity, with multiple episodes of cellulitis of the right lower extremity, who presented to the emergency room with increased swelling, redness, pain, warmth of his right lower extremity below the knee and dorsum of his right foot. He was found to be septic with elevated white count, fever, tachycardia and cellulitis present. He did not know what kind of bacterial process he had had in the past. He was placed on vancomycin and admitted to the medical surgical floor. The following day he had mild improvement in his swelling, and the erythema was receding away from demarcations. He was transitioned to Ancef as it appeared to be more of a streptococcal infection. He was kept overnight for another day and monitored for further improvement-it did continue to improve. His fever resolved. His white count resolved. He was transitioned to Duricef and prescribed this for 7 more days. He also appeared to have evidence of bilateral foot tinea pedis and was started on Lotrimin for 14 days. Furthermore he had mildly elevated glucose while here and an A1c was checked given his morbid obesity, his A1c was 5.9 indicating prediabetes. He is is advised to reduce his caloric intake and he will need a repeat A1c in 3-4 months and follow-up with his PCP for this. He is advised to follow-up with his PCP in 1-2 weeks. He was discharged home in stable condition. This patient was seen by Linus Lance PA-C under the supervision of Doctor Rosalie. [] Discharge Diet: 2000 Calorie Control Diet Discharge Activity: Return to Normal Activity Home Medications: Medications to take at Discharge Cholecalciferol (Vitamin D3) [Vitamin D3] 5,000 unit PO DAILY 12/01/17 Lisinopril/Hydrochlorothiazide [Zestoretic 20-12.5 mg Tablet] 1 each PO DAILY 12/01/17 Cefadroxil [Duricef] 1,000 mg PO BID #28 cap 12/03/17 Clotrimazole [Lotrimin] 1 applicatio TOPICAL BID #1 tube 12/03/17 Following Prescrptions Were Given to Patient: Cefadroxil [Duricef] 1,000 mg PO BID #28 cap Clotrimazole [Lotrimin] 1 applicatio TOPICAL BID #1 tube Primary Care Physician: Care Physician,No Primary [Primary Care Provider] - Please follow up with your Primary Care Physician in: 1-2 weeks Disposition: Home Minutes spent on discharge:: 35 Patient Condition:: Stable Medical Necessity - Tobacco Use Smoking Status: Current every day smoker Tobacco Use: Cigarettes Meaningful Use Info Meaningful Use Diagnoses (Choose all that apply): None applicable
[2017-12-03 13:58] LABS: M R Staph aureus DNA By PCR Negative (Negative); Probe Check PASS; Specimen Processing Control PASS
== END 2017-12-03 12:22 | disposition home or self-care (01) | DRG 383 ==
LOC: ED 16:38 → MS3 17:54
PROVIDERS: Physician Assistant; Emergency Provider Emergency Medicine; Visit Provider Internal Medicine
DX: L03.115 Cellulitis of right lower limb (principal); I10 Essential (primary) hypertension; E66.01 Morbid (severe) obesity due to excess calories; F17.210 Nicotine dependence, cigarettes, uncomplicated; R73.03 Prediabetes; Z68.44 Body mass index [BMI] 60.0-69.9, adult
CPT/HCPCS: 36415; 73700; 80048; 80053; 82962; 83036; 83605; 85025; 87040; 87081; 87641; 93971; 97802; 99282; 99406; J7030; J7040; A4216